=== PATIENT | female | born 1960 | race Caucasian/White ===

== ENCOUNTER → 2017-11-07 00:10 | Outpatient (CLI) | payer OTHER, SELFPAY ==
--- NOTE | 2017-11-07 10:20 | DI.REPORT_ITS ---
SYMPTOM/DIAGNOSIS: SCREENING Z12.31 BILATERAL SCREENING MAMMOGRAMS: Mammograms were interpreted according to the usual protocol including computer analysis with CAD system, tomosynthesis and C view imaging. Comparison is made with exams from 2012 through 2016. The breasts are composed of fatty density tissue. There are no suspicious masses or suspicious microcalcifications seen. There has been no significant change. IMPRESSION: Category 1-A, negative mammogram. Routine screening is recommended. SA ASSESSMENT OF FINDINGS: Negative. Category 1. Patient will receive a letter notifying them of these results. BI-RAD category A. The breasts are almost entirely fatty.
== END ==
PROVIDERS: PCP Family Medicine; Visit Provider Family Medicine
DX: Z12.31 Encounter for screening mammogram for malignant neoplasm of breast (principal)
CPT/HCPCS: 77063; 77067

== ENCOUNTER 2018-04-11 14:32 | Outpatient (CLI) | payer OTHER, SELFPAY ==
[2018-04-11 15:15] LABS: Abs Immature Grans 0.01 k/cumm (0.0-0.09); Absolute Basophil Count 0.07 k/cumm (0.0-0.2); Absolute Lymphocyte Count 1.77 k/cumm (1.2-3.4); Absolute Monocyte Count 0.65 k/cumm (0.11-0.7); Absolute Neutrophil Count 4.74 k/cumm (1.2-6.7); Basophils % 0.9; Eosinophils % 7.7; HCT 39.6 % (36.0-46.0); HGB 13.4 g/dL (12.0-15.5); Immature Grans % 0.1; Lymphocytes % 22.6; Mean Corp. HGB Concentration 33.8 g/dL (32.0-36.0); Mean Corpuscular Hemoglobin 30.7 pg (27.0-33.0); Mean Corpuscular Volume 90.8 fL (80-95); Mean Platelet Volume 10.6 fL (8.0-11.0); Monocytes % 8.3; Neutrophils % 60.4; Platelet Count 303 x1000/uL (130-400); RBC 4.36 m/cumm (4.00-5.20); RBC Distribution Width 13.4 % (11.7-14.6); White Blood Cell Count 7.84 k/cumm (4.4-10.8)
[2018-04-11 15:18] LABS: Prothrombin Time 10.2 sec (9.3-11.0)
[2018-04-11 16:51] LABS: ALT 41 U/L (12-78); AST 33 U/L (15-37); Albumin 3.8 g/dL (3.4-5.0); Alkaline Phosphatase 89 U/L (46-116); Anion Gap 8.8 mmol/L (3-11); BUN 19 mg/dL (7-18); Bilirubin, Total 0.5 mg/dL (0.2-1.0); CO2 30.2 mmol/L (21.0-32.0); CREATININE 0.72 mg/dL (0.55-1.02); Calcium 9.5 mg/dL (8.5-10.1); Chloride 101 mmol/L (98-107); Glucose 88 mg/dL (70-100); Potassium 3.4 mmol/L (3.5-5.1); Sodium 140 mmol/L (136-145); Total Protein 7.3 g/dL (6.4-8.2)
== END 2018-04-11 14:52 ==
PROVIDERS: PCP Family Medicine; Visit Provider Nurse Practitioner Family
DX: R04.0 Epistaxis (principal)
CPT/HCPCS: 36415; 80053; 85025; 85610

== ENCOUNTER 2018-08-25 08:17 | Outpatient (CLI) | payer OTHER, SELFPAY ==
[2018-08-25 09:36] LABS: Abs Immature Grans 0.01 k/cumm (0.0-0.09); Absolute Basophil Count 0.04 k/cumm (0.0-0.2); Absolute Eosinophil Count 0.55 k/cumm (0.0-0.7); Absolute Monocyte Count 0.58 k/cumm (0.11-0.7); Absolute Neutrophil Count 3.42 k/cumm (1.2-6.7); Basophils % 0.7; HCT 38.8 % (36.0-46.0); Immature Grans % 0.2; Lymphocytes % 24.6; Mean Corp. HGB Concentration 33.5 g/dL (32.0-36.0); Mean Corpuscular Hemoglobin 30.1 pg (27.0-33.0); Mean Corpuscular Volume 89.8 fL (80-95); Monocytes % 9.5; Platelet Count 280 x1000/uL (130-400); RBC 4.32 m/cumm (4.00-5.20); RBC Distribution Width 13.9 % (11.7-14.6)
[2018-08-25 10:05] LABS: ALT 38 U/L (12-78); AST 29 U/L (15-37); Albumin 3.6 g/dL (3.4-5.0); Alkaline Phosphatase 89 U/L (46-116); Anion Gap 8.2 mmol/L (3-11); BUN 15 mg/dL (7-18); Bilirubin, Total 0.4 mg/dL (0.2-1.0); CO2 30.8 mmol/L (21.0-32.0); CREATININE 0.67 mg/dL (0.55-1.02); Calcium 8.8 mg/dL (8.5-10.1); Chloride 103 mmol/L (98-107); Glucose 90 mg/dL (70-100); Potassium 3.9 mmol/L (3.5-5.1); Sodium 142 mmol/L (136-145); Total Protein 6.9 g/dL (6.4-8.2)
[2018-08-25 10:07] LABS: Cholesterol 183 mg/dL (50-200); HDL Cholesterol 57 mg/dL (40-60); LDL CHOLESTEROL 105 mg/dL (<100); Triglyceride 63 mg/dL (30-150)
== END 2018-08-25 08:37 ==
PROVIDERS: PCP Family Medicine; Visit Provider Internal Medicine Rheumatology
DX: E78.5 Hyperlipidemia, unspecified (principal); M19.90 Unspecified osteoarthritis, unspecified site; Z79.899 Other long term (current) drug therapy
CPT/HCPCS: 36415; 80053; 80061; 83721; 85025

== ENCOUNTER 2018-11-19 03:47 | Outpatient (CLI) | payer OTHER, SELFPAY ==
--- NOTE | 2018-11-19 09:50 | DI.MAMMO_ITS ---
SYMPTOM/DIAGNOSIS: SCREENING, Z12.31 BILATERAL SCREENING MAMMOGRAM: Mammograms were interpreted according to the usual protocol including computer analysis with CAD system, tomosynthesis and C view imaging. Comparison is made with exams from 2012 through 2018. The breasts are composed of fatty density tissue, breast density category A. No suspicious masses or suspicious microcalcifications are seen. There has been no significant change. IMPRESSION: Category 1, negative mammogram. Yearly screening mammography is recommended. Breast density category A. SA ASSESSMENT OF FINDINGS: Negative. Category 1. Patient will receive a letter notifying them of these results. BI-RAD category A. The breasts are almost entirely fatty.
== END 2018-11-19 04:07 ==
PROVIDERS: PCP Family Medicine; Visit Provider Family Medicine
DX: Z12.31 Encounter for screening mammogram for malignant neoplasm of breast (principal)
CPT/HCPCS: 77063; 77067

== ENCOUNTER 2019-03-26 13:39 | Outpatient (REF) | payer OTHER, SELFPAY ==
--- NOTE | 2019-03-26 13:30 | ENDOMET_PTH ---
PATIENT: Ashlie Jenkins LOC: [facility] U#:[id number] AGE/SX: 59/F ROOM: RE03/26/[address]: Moraima Rosales : 1960 BED: DIS: 03/26/2019 SPEC #: [id number] RECD: 03/26/19 17:28 STATUS: VÍCTOR RETiffanie #: [id number] KAREL: 03/26/19 13:[address]: Moraima Rosales DEPT: Surgical Specimen RECD BY: Maria D Angeles ENTERED: 03/26/19 17:29 SP TYPE: Endomet OTHR DR: Abigail Vizcarra MD Tissues: 1 - ENDOMETRIUM BX/CURRETTE Procedures: GROSS AND MICRO LEVEL 4 Comments: [id number]
== END 2019-03-26 13:59 ==
LOC: LBN 13:39
PROVIDERS: PCP Family Medicine; Visit Provider Obstetrics & Gynecology Gynecology
DX: N85.01 Benign endometrial hyperplasia (principal); N95.0 Postmenopausal bleeding
CPT/HCPCS: 88305

== ENCOUNTER 2019-11-23 01:04 | Outpatient (CLI) | payer OTHER, SELFPAY ==
--- NOTE | 2019-11-23 08:30 | DI.MAMMO_ITS ---
EXAM: MAMMO SCREENING CLINICAL HISTORY: screening,z12.39 TECHNIQUE: Mammograms were interpreted according to the usual protocol including computer analysis w [employer] CAD system, tomosynthesis and C-view imaging. COMPARISON: 2011 through 2018 FINDINGS: The breasts are composed of mainly fatty density , Breast Density category A. No suspicious masses or suspicious microcalcifications are seen. No skin thickening or abnormal axillary lymph nodes are seen. There has been no significant change from prior exams. IMPRESSION: BI-RADS Category 1, Negative mammogram Yearly screening mammography is recommended. Breast Density Category A, fatty density. A negative radiographic report should not delay biopsy if a dominant or clinically suspicious mass is present. Up to ten percent of cancers are not identified on mammography. A negative report may reinforce clinical impression. Adenosis and dense breasts may obscure an underlying neoplasm. False positive reports average 6 to 10%. Patient will receive a letter notifying them of these results.
== END 2019-11-23 01:24 ==
PROVIDERS: PCP Family Medicine; Visit Provider Family Medicine
DX: Z12.31 Encounter for screening mammogram for malignant neoplasm of breast (principal); R92.2 Inconclusive mammogram
CPT/HCPCS: 77063; 77067

== ENCOUNTER 2020-01-12 01:26 | Outpatient (CLI) | payer OTHER, SELFPAY ==
[2020-01-12 09:24] LABS: HCT 38.7 % (36.0-46.0); HGB 13.1 g/dL (11.2-15.7); MCH 30.1 pg (27.0-33.0); MCHC 33.9 % (32.0-36.0); MPV 10.4 fL (8.0-11.0); Platelet Count 293 10^3/uL (130-400); RBC 4.35 10^6/uL (3.93-5.22); RDW 13.5 % (11.7-14.6); RDW-SD 44.1 fL; WBC 6.63 10^3/uL (4.4-10.8)
[2020-01-12 10:09] LABS: ALT 74 U/L (14-59); AST 51 U/L (15-37); Albumin 3.8 g/dL (3.4-5.0); Alkaline Phosphatase 99 U/L (46-116); Anion Gap 4.2 mmol/L (3-11); BUN 14 mg/dL (7-18); Bilirubin, Total 0.5 mg/dL (0.2-1.0); CO2 34.8 mmol/L (21.0-32.0); CREATININE 0.62 mg/dL (0.55-1.02); Calcium 8.9 mg/dL (8.5-10.1); Calculated LDL 143 mg/dL (<100); Chloride 103 mmol/L (98-107); Cholesterol 229 mg/dL (<200); Glucose 112 mg/dL (74-106); HDL Cholesterol 72 mg/dL (40-60); Potassium 3.7 mmol/L (3.5-5.1); Sodium 142 mmol/L (136-145); Total Protein 7.1 g/dL (6.4-8.2); Triglyceride 70 mg/dL (<150)
== END 2020-01-12 01:46 ==
PROVIDERS: PCP Family Medicine; Visit Provider Internal Medicine Rheumatology
DX: E78.5 Hyperlipidemia, unspecified (principal); E83.42 Hypomagnesemia; M19.90 Unspecified osteoarthritis, unspecified site; Z79.899 Other long term (current) drug therapy
CPT/HCPCS: 36415; 80053; 80061; 85027; 83735

== ENCOUNTER 2020-06-15 03:50 | Outpatient (CLI) | payer OTHER, SELFPAY ==
[2020-06-15 09:27] LABS: Hemoglobin A1C 5.7 % (<5.7)
[2020-06-15 10:12] LABS: ALT 32 U/L (14-59); AST 24 U/L (15-37); Albumin 3.7 g/dL (3.4-5.0); Alkaline Phosphatase 98 U/L (46-116); Anion Gap 10.7 mmol/L (3-11); BUN 15 mg/dL (7-18); Bilirubin, Total 0.5 mg/dL (0.2-1.0); CO2 28.3 mmol/L (21.0-32.0); CREATININE 0.7 mg/dL (0.55-1.02); Calcium 8.9 mg/dL (8.5-10.1); Calculated LDL 97 mg/dL (<100); Chloride 102 mmol/L (98-107); Cholesterol 171 mg/dL (<200); Glucose 100 mg/dL (74-106); HDL Cholesterol 60 mg/dL (40-60); Potassium 3.9 mmol/L (3.5-5.1); Sodium 141 mmol/L (136-145); Total Protein 7.2 g/dL (6.4-8.2); Triglyceride 74 mg/dL (<150)
== END 2020-06-15 03:51 | disposition home or self-care (01) ==
LOC: LBO 03:51
PROVIDERS: PCP Family Medicine; Visit Provider Family Medicine
DX: E78.00 Pure hypercholesterolemia, unspecified (principal); R74.02 Elevation of levels of lactic acid dehydrogenase [LDH]; R73.9 Hyperglycemia, unspecified
CPT/HCPCS: 36415; 80053; 80061; 83036

== ENCOUNTER 2020-07-23 16:45 | Outpatient (REF) | payer OTHER, SELFPAY | END 2020-07-23 16:46 | disposition home or self-care (01) | LOC: LBN 16:45 | PROVIDERS: PCP Family Medicine; Visit Provider Nurse Practitioner Family | DX: N39.0 Urinary tract infection, site not specified (principal) | CPT/HCPCS: 87077; 87086; 87186 ==

== ENCOUNTER 2021-01-06 01:16 | Outpatient (CLI) | payer OTHER, SELFPAY ==
[2021-01-06 11:35] LABS: Abs Immature Grans 0.04 10^3/uL (0.0-0.06); Absolute Basophil Count 0.08 10^3/uL (0.0-0.2); Absolute Eosinophil Count 0.41 10^3/uL (0.0-0.7); Absolute Monocyte Count 0.83 10^3/uL (0.1-0.8); Absolute Neutrophil Count 6.15 10^3/uL (1.2-6.7); Basophils % 0.8; Eosinophils % 4.3; HCT 40.4 % (36.0-46.0); HGB 13.2 g/dL (11.2-15.7); Immature Grans % 0.4; Lymphocytes % 21.9; MCH 28.9 pg (27.0-33.0); MCHC 32.7 % (32.0-36.0); MCV 88.4 fL (80-95); MPV 10.1 fL (8.0-11.0); Monocytes % 8.6; Nucleated RBC 0 %; Platelet Count 392 10^3/uL (130-400); RBC 4.57 10^6/uL (3.93-5.22); RDW 13.9 % (11.7-14.6); RDW-SD 45.1 fL; WBC 9.61 10^3/uL (4.4-10.8)
[2021-01-06 12:51] LABS: ALT 33 U/L (14-59); AST 25 U/L (15-37); Albumin 3.9 g/dL (3.4-5.0); Alkaline Phosphatase 100 U/L (46-116); Anion Gap 5.8 mmol/L (3-11); BUN 19 mg/dL (7-18); Bilirubin, Total 0.4 mg/dL (0.2-1.0); CO2 34.2 mmol/L (21.0-32.0); CREATININE 0.8 mg/dL (0.55-1.02); Calcium 9.2 mg/dL (8.5-10.1); Chloride 102 mmol/L (98-107); Glucose 91 mg/dL (74-106); Potassium 4.1 mmol/L (3.5-5.1); Sodium 142 mmol/L (136-145); Total Protein 7.6 g/dL (6.4-8.2)
== END 2021-01-06 01:17 | disposition home or self-care (01) ==
LOC: LBO 01:16
PROVIDERS: PCP Family Medicine; Visit Provider Internal Medicine Rheumatology
DX: M15.4 Erosive (osteo)arthritis (principal); Z79.899 Other long term (current) drug therapy
CPT/HCPCS: 36415; 80053; 85025

== ENCOUNTER 2021-06-29 11:21 | Outpatient (REF) | payer OTHER, SELFPAY ==
--- NOTE | 2021-06-29 10:37 | PAPFT_PTH ---
PATIENT: Ashlie Jenkins LOC: [facility] U#:[id number] AGE/SX: 61/F ROOM: RE06/29/[address]: Moraima Rosales : 1960 BED: DIS: 06/29/2021 SPEC #: [id number] RECD: 06/29/21 12:43 STATUS: VÍCTOR REQ #: [id number] KAREL: 06/29/21 10:[address]: Moraima Rosales DEPT: [facility] Cytology RECD BY: Maria D Angeles ENTERED: 06/29/21 12:43 SP TYPE: PAPFT OTHR DR: Shadia Márquez Tissues: 1 - CX/ENDOCX FOR PAP SMEARS Procedures: PAP THIN PREP/UVM Screening HPV DNA PROBE Comments: [id number]
== END 2021-06-29 11:22 | disposition home or self-care (01) ==
LOC: LBN 11:21
PROVIDERS: PCP Family Medicine; Visit Provider Obstetrics & Gynecology Gynecology
DX: Z12.4 Encounter for screening for malignant neoplasm of cervix (principal); Z11.51 Encounter for screening for human papillomavirus (HPV)
CPT/HCPCS: 88142; 87624

== ENCOUNTER 2021-07-24 01:27 | Outpatient (CLI) | payer OTHER, SELFPAY ==
--- NOTE | 2021-07-24 17:00 | DI.MAMMO_ITS ---
Exam(s) MAMMO SCREENING EXAM: MAMMO SCREENING CLINICAL HISTORY: screening. TECHNIQUE: Bilateral full field digital CC and MLO mammographic images were obtained with 3D tomosyn thesis and utilizing computer aided detection (CAD). COMPARISON: Prior mammograms were reviewed, the most recent being November 2019.. FINDINGS: There has been no significant change in the appearance and distribution of the fibroglandular tissue. There are no new spiculated masses nor malignant appearing microcalcification groups. There is no significant architectural distortion nor skin thickening-retraction. IMPRESSION: No radiographic evidence of malignancy. BI-RADS Category 1 - Negative Breast Density - Category A - Almost entirely fatty Breast density Category C or D implies that the patient has dense breast tissue. Dense breast tissue can make it harder to find cancer on a mammogram. Dense breast tissue is also associated with an incr eased risk of breast cancer. This information about the result of the mammogram report was provided to the patient to raise their awareness. Use this report when you speak with the patient about their risks for breast cancer, which includes their family history. At that time, you may recommend additional screening tests (Ultrasoun d or MRI) as these tests may add significant information. A negative radiographic report should not delay biopsy if a dominant or clinically suspicious mass is present. Up to ten percent of cancers are not identified on mammography. A negative report may reinforce clinical impression. Adenosis and dense breasts may obscure an underlying neoplasm. False positive reports average 6 to 10%. Patient will receive a letter notifying them of these results.
== END 2021-07-24 01:47 ==
PROVIDERS: PCP Family Medicine; Visit Provider Obstetrics & Gynecology Gynecology
DX: Z12.31 Encounter for screening mammogram for malignant neoplasm of breast (principal)
CPT/HCPCS: 77063; 77067

== ENCOUNTER 2021-08-01 06:00 | Outpatient (CLI) | payer OTHER, SELFPAY ==
[2021-08-01 10:23] LABS: Abs Immature Grans 0.01 10^3/uL (0.0-0.06); Absolute Basophil Count 0.07 10^3/uL (0.0-0.2); Absolute Eosinophil Count 0.42 10^3/uL (0.0-0.7); Absolute Lymphocyte Count 1.52 10^3/uL (1.2-3.4); Absolute Monocyte Count 0.52 10^3/uL (0.1-0.8); Absolute Neutrophil Count 4.16 10^3/uL (1.2-6.7); Eosinophils % 6.3; HCT 41.8 % (36.0-46.0); HGB 13.6 g/dL (11.2-15.7); Immature Grans % 0.1; Lymphocytes % 22.7; MCH 29.2 pg (27.0-33.0); MCHC 32.5 % (32.0-36.0); MCV 89.7 fL (80-95); MPV 10.5 fL (8.0-11.0); Monocytes % 7.8; Neutrophils % 62.1; Platelet Count 337 10^3/uL (130-400); RBC 4.66 10^6/uL (3.93-5.22); RDW 14.1 % (11.7-14.6); RDW-SD 46.3 fL
[2021-08-01 10:35] LABS: Hemoglobin A1C 5.7 % (<5.7)
[2021-08-01 11:21] LABS: ALT 61 U/L (14-59); AST 36 U/L (15-37); Albumin 3.9 g/dL (3.4-5.0); Alkaline Phosphatase 94 U/L (46-116); Anion Gap 5.7 mmol/L (3-11); BUN 16 mg/dL (7-18); Bilirubin, Total 0.4 mg/dL (0.2-1.0); CO2 32.3 mmol/L (21.0-32.0); CREATININE 0.7 mg/dL (0.55-1.02); Calcium 8.9 mg/dL (8.5-10.1); Calculated LDL 131 mg/dL (<100); Chloride 104 mmol/L (98-107); Cholesterol 206 mg/dL (<200); Glucose 102 mg/dL (74-106); HDL Cholesterol 59 mg/dL (40-60); Potassium 3.9 mmol/L (3.5-5.1); Sodium 142 mmol/L (136-145); TSH 1.02 uIU/mL (0.36-3.74); Total Protein 7.4 g/dL (6.4-8.2); Triglyceride 83 mg/dL (<150); Vitamin B12 686 pg/mL (193-986)
[2021-08-01 11:31] LABS: Uric Acid 4.4 mg/dL (2.6-6.0)
[2021-08-03 05:57] LABS: Vitamin D 25 Total 37.7 ng/mL (30-100)
== END 2021-08-01 06:01 | disposition home or self-care (01) ==
LOC: LBO 06:00
PROVIDERS: PCP Family Medicine; Visit Provider Family Medicine
DX: E66.01 Morbid (severe) obesity due to excess calories (principal); Z68.41 Body mass index [BMI] 40.0-44.9, adult
CPT/HCPCS: 36415; 80053; 80061; 82306; 82607; 83036; 83525; 84443; 84550; 85025

== ENCOUNTER 2021-08-24 03:34 | Outpatient (CLI) | payer OTHER, SELFPAY ==
[2021-08-24 10:25] LABS: Iron 71 ug/dL (50-170); Total Iron Binding Capacity 342 ug/dL (250-450)
[2021-08-24 10:39] LABS: Ferritin 83 ng/mL (8-252)
[2021-08-25 09:00] LABS: Hepatitis B Surface Ag Negative (Negative)
[2021-08-25 10:23] LABS: Hepatitis C Ab w Rflx HCV PCR Negative (Negative)
== END 2021-08-24 03:35 | disposition home or self-care (01) ==
LOC: LBO 03:34
PROVIDERS: PCP Family Medicine; Visit Provider Nurse Practitioner Family
DX: R79.89 Other specified abnormal findings of blood chemistry (principal)
CPT/HCPCS: 36415; 86803; 87340; 82728; 83540; 83550

== ENCOUNTER 2022-02-20 03:40 | Outpatient (CLI) | payer OTHER, SELFPAY ==
[2022-02-20 10:37] LABS: Calcium 8.5 mg/dL (8.5-10.1); Glucose 104 mg/dL (74-106)
[2022-02-20 10:38] LABS: Anion Gap 5.3 mmol/L (3-11); BUN 14 mg/dL (7-18); CO2 32.7 mmol/L (21.0-32.0); CREATININE 0.7 mg/dL (0.55-1.02); Calculated LDL 126 mg/dL (<100); Chloride 103 mmol/L (98-107); Cholesterol 208 mg/dL (<200); Estimated GFR 98.34 (mL/min/1.73m2); HDL Cholesterol 64 mg/dL (40-60); Potassium 3.2 mmol/L (3.5-5.1); Sodium 141 mmol/L (136-145); Triglyceride 90 mg/dL (<150)
== END 2022-02-20 03:41 | disposition home or self-care (01) ==
LOC: LBO 03:40
PROVIDERS: PCP Family Medicine; Visit Provider Family Medicine
DX: I10 Essential (primary) hypertension (principal); E78.5 Hyperlipidemia, unspecified
CPT/HCPCS: 36415; 80048; 80061

== ENCOUNTER 2022-11-20 18:26 | Emergency (ER) | payer OTHER, SELFPAY ==
[2022-11-20 18:30] VITALS: BP 158/84; PULSE 86; RESP 18; TEMP 36; O2SAT 96
--- NOTE | 2022-11-20 20:36 | W.ED.GENAD ---
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) Primary Care Provider: Shadia Márquez ED Provider: Osmani Tovar Home Meds and New Rx's Prescriptions: New valacyclovir 1 gram tablet 1,000 mg PO TID 7 Days Qty: 21 0RF prednisone 20 mg tablet 60 mg PO DAILY 7 Days Qty: 21 0RF No Action Metamucil 3.4 gram/5.4 gram powder 1 tsp PO DAILY duloxetine 60 mg capsule,delayed release(DR/EC) 60 mg PO DAILY Qty: 90 4RF Rx Instructions: take one capsule daily/ naproxen [Naprosyn] 500 mg tablet 500 mg PO DAILY Qty: 90 3RF potassium chloride 10 mEq tablet extended release 10 meq PO DAILY Qty: 90 3RF hydrochlorothiazide 25 mg tablet 25 mg PO DAILY Qty: 90 4RF famotidine 20 mg tablet 20 mg PO BID PRN (Reason: gerd) Qty: 60 2RF losartan 50 mg tablet 50 mg PO DAILY Qty: 30 3RF acetaminophen [Tylenol Extra Strength] 500 MG tablet 1,000 mg PO PRN (DME) Aerochamber Plus Flow-Vu 1 EACH spacer 1 ea Miscellaneous PRN Qty: 1 cholecalciferol (vitamin D3) 25 mcg (1,000 unit) tablet 25 mcg PO DAILY Qty: 60 Discharge Instructions Instructions: Chacon Palsy (ED) Additional Instructions: Please take medications as prescribed. Please follow-up with your primary care physician. Return to the emergency department for any worsening symptom Medical Decision Making 62-year-old female presents with 1 day of right-sided headache occipital in nature increased lacrimation of right eye, facial paralysis involving brow eye and nasolabial fold, found to have vesicular lesions on right TM, history and physical consistent with Rafael España syndrome. We will start valacyclovir and prednisone. Low suspicion for CVA intracranial hemorrhage meningitis encephalitis carotid artery pathology or jugular venous thrombosis given history and physical. Home care instructions return precautions given HPI General Date/Time Provider Initiated Documentation: 11/20/22 20:23. HPI Narrative: 62-year-old female presents with right-sided neck discomfort headache and facial paralysis over the last day, also has some ear pain and has noted increased lacrimation of right eye Related Data Home Medications Medication Instructions Recorded Confirmed acetaminophen 500 mg tablet 1,000 mg PO PRN 05/06/14 11/20/22 (Tylenol Extra Strength) inhalational spacing device ##1 08/02/14 11/20/22 (Aerochamber Plus Flow-Vu) psyllium husk 3.4 gram/5.4 gram 1 tsp PO DAILY 01/30/18 11/20/22 oral powder (Metamucil) duloxetine 60 mg capsule,delayed 60 mg PO DAILY #90 caps 02/26/22 11/20/22 release hydrochlorothiazide 25 mg tablet 25 mg PO DAILY #90 tabs 02/26/22 11/20/22 naproxen 500 mg tablet (Naprosyn) 500 mg PO DAILY #90 tab-caps 02/26/22 11/20/22 potassium chloride 10 mEq 10 meq PO DAILY #90 tabs 02/26/22 11/20/22 tablet,extended release cholecalciferol (vitamin D3) 25 25 mcg PO DAILY #60 tabs 06/27/22 11/20/22 mcg (1,000 unit) tablet famotidine 20 mg tablet 20 mg PO BID PRN gerd #60 tabs 09/04/22 11/20/22 losartan 50 mg tablet 50 mg PO DAILY #30 tabs 09/04/22 11/20/22 prednisone 20 mg tablet 60 mg PO DAILY 7 days #21 tabs 11/20/22 valacyclovir 1 gram tablet 1,000 mg PO TID 7 days #21 tabs 11/20/22 Previous Rx's Medication Instructions Recorded duloxetine 60 mg capsule,delayed 60 mg PO DAILY #90 caps 02/26/22 release hydrochlorothiazide 25 mg tablet 25 mg PO DAILY #90 tabs 02/26/22 naproxen 500 mg tablet (Naprosyn) 500 mg PO DAILY #90 tab-caps 02/26/22 potassium chloride 10 mEq 10 meq PO DAILY #90 tabs 02/26/22 tablet,extended release famotidine 20 mg tablet 20 mg PO BID PRN gerd #60 tabs 09/04/22 losartan 50 mg tablet 50 mg PO DAILY #30 tabs 09/04/22 prednisone 20 mg tablet 60 mg PO DAILY 7 days #21 tabs 11/20/22 valacyclovir 1 gram tablet 1,000 mg PO TID 7 days #21 tabs 11/20/22 Allergies Allergy/AdvReac Type Severity Reaction Status Date / Time adhesive AdvReac Intermediate Skin Rash Verified 11/20/22 18:35 lisinopril AdvReac Mild cough Verified 11/20/22 18:35 glucosamine AdvReac HEADACHE Verified 11/20/22 18:35 General Stated Complaint: GenMedical BANDAR: 3 Review of Systems Narrative: Review of Systems Constitutional: negative Eyes: Lacrimation ENT: Ear pain, facial paralysis Cardiovascular: negative Respiratory: negative Gastrointestinal: negative : negative Musculoskeletal: negative Skin: negative Neurologic: Facial paralysis, headache Psych: negative PFSH All Active Problems (Updated 11/20/22 @ 20:40 by Osmani Tovar MD) Allergic rhinitis (Chronic 12/24/13) Essential hypertension (Chronic 05/07/13) Hyperlipidemia (Chronic 01/03/12) Inflammatory osteoarthritis (Chronic) Depression, major, recurrent, in partial remission (Chronic) Class 2 obesity due to excess calories with body mass index (BMI) of 39.0 to 39.9 in adult (Chronic) Gastro-esophageal reflux (Chronic) 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 Hysteroscopy. B9 findings. Rx with daily Norethindrone. Stopped 10/30/17. 02/2019 resumption of light daily bleeding. 03/2019-EMBx: Normal. Bleeding resolved w/o treatment. Osteoarthritis Quadriceps tendonitis (11/28/16) Surgical History Cervical Procedure LEEP Cholecystectomy (02/04/11) open Dilation and curettage (05/06/14) [facility] Hysteroscopy (05/06/14) [facility] Replacement of total knee joint bilateral wrist surgery Family History Mother , 74 Depression Father , 74 Hyperlipidemia Sister Depression Diabetes Sister Depression Brother Asthma Son Asthma Daughter Asthma Cancer Depression Hypertension Social History (Updated 02/26/22 @ 14:24 by Shadia Márquez MD) Smoking/Tobacco Use Status: Never Second Hand Exposure: Yes Smoking risk assessment performed?: Yes Alcohol Intake: current Alcohol Intake frequency: a few times a month Alcohol type: hard liquor Drug use: Never Substance use type: does not use Caregiver/Support person: No Household members: spouse and other Details: Taylor Has been having health issues. Housing: house Communication Needs: Corrective Lenses Do you need help understanding health information?: Rarely current occupation: works in kitchen AT [employer] Pets and animals: Yes Pets and animals: cat(s) Sexually active: Yes Do you think of yourself as: straight/heterosexual Current gender identity: female What is your relationship status?: How often do you talk on the phone with friends or family?: three or more times per week How often do you get together with friends or relatives?: once per week How often do you attend samaritan or congregation services?: decline to answer Do you belong to any clubs or organized social groups?: no Panel score (0-1 are the most socially isolated patients): 2 What type of physical activity do you participate in: walking Duration: < 15 minutes/day Frequency: 1-2 times per week Ml/Yazidi: Confucianism Special ml needs: No Seatbelt use: always Helmet use: No Drive intox or ride 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 Female Reproductive History Menstrual Menopause type: natural History History 3 Para 2 Hx # Term Pregnancies Multiple births Hx # Pregnancies Ectopic pregnancies AB induced Hx Number of Living Children 2 AB spontaneous Exam Narrative Exam Narrative: Physical Examination General: alert, awake, cooperative, resting comfortably, no acute distress HEENT: normocephalic, atraumatic; PERRL, EOM intact, conjunctiva normal increased lacrimation of right eye; no nasal discharge; moist mucous membranes, oral and pharyngeal mucosa normal, tolerating secretions; vesicular lesions on right TM Neck: supple, trachea midline; full ROM Chest: normal to inspection Respiratory: normal respiratory effort, speaking in full sentences, clear to auscultation, no wheezing, rales or rhonchi Cardiac: regular rate, regular rhythm, S1S2 intact, no murmurs rubs or gallops GI: abdomen soft, non-tender, non-distended; no palpable mass or hepatosplenomegaly Skin: no lesions, rashes or trauma appreciated Neuro: Alert and oriented x3, partial paralysis of facial muscles innervated by cranial nerve VII involving forehead brow orbicularis and labial fold, patient is able to blink and close eye completely, remaining cranial nerves intact, normal speech, 5 out of 5 strength upper and lower extremities, ambulatory without ataxia Psych: Appropriate mood and affect Course Vital Signs Vital signs: Vital Signs Temperature 36.0 C L 11/20/22 18:30 Pulse 86 11/20/22 18:30 Respiratory Rate 18 11/20/22 18:30 Blood Pressure 158/84 H 11/20/22 18:30 Pulse Oximetry 96 11/20/22 18:30 Temperature 36.0 C L 11/20/22 18:30 Temperature Source Temporal Artery Scan 11/20/22 18:30 Pulse 86 11/20/22 18:30 Respiratory Rate 18 11/20/22 18:30 Respiratory Effort Normal, Non-Labored 11/20/22 18:36 Blood Pressure 158/84 H 11/20/22 18:30 Blood Pressure Position Sitting 11/20/22 18:30 Pulse Oximetry 96 11/20/22 18:30 Oxygen Delivery Method Room Air 11/20/22 18:30 Oxygen Flow Rate 0 11/20/22 18:30 PAWSS Have you Been Recently Intoxicated or Drunk Within the Last 30 days?: No Have you Ever Experienced Previous Episodes of Alcohol Withdrawal?: No Have you ever Experienced Withdrawal Seizures?: No Have you ever Experienced Delirium Tremens(DT)s?: No Have you ever undergone Alcohol Rehabilitation Treatment (i.e, inpt ot outpatient treatment programs)?: No Have you ever Experienced Blackouts?: No Have you ever Combined Alcohol with other Downers within the last 90 days?: No Have you ever Combined Alcohol with any other Substance of Abuse during the last 90 days?: No Positive Blood Alcohol level on Presentation? [PCS.BAL]: No Evidence of Increased Autonomic Activity (i.e. HR>120, tremor, sweating, agitation, nausea)?: No Result: 0
[2022-11-20] MEDS: valACYclovir 500 MG TAB (20:50)
[2022-11-20] MEDS: predniSONE 20 MG TAB 60 MG PO (20:50)
[2022-11-20 20:51] VITALS: RESP 18
== END 2022-11-20 21:08 | disposition home or self-care (01) ==
PROVIDERS: Emergency Provider Emergency Medicine; PCP Family Medicine
DX: G51.0 Bell's palsy (principal); B02.21 Postherpetic geniculate ganglionitis
CPT/HCPCS: 87798; 99283; 86618; 99284; J7512

== ENCOUNTER 2023-03-13 12:43 | Outpatient (CLI) | payer OTHER, SELFPAY ==
[2023-03-13 11:29] LABS: Anion Gap 8.8 mmol/L (3-11); BUN 14 mg/dL (7-18); CO2 31.2 mmol/L (21.0-32.0); CREATININE 0.8 mg/dL (0.55-1.02); Calcium 8.9 mg/dL (8.5-10.1); Calculated LDL 153 mg/dL (<100); Chloride 103 mmol/L (98-107); Cholesterol 230 mg/dL (<200); Estimated GFR 83.26 (mL/min/1.73m2); Glucose 113 mg/dL (74-106); HDL Cholesterol 52 mg/dL (40-60); Potassium 3.4 mmol/L (3.5-5.1); Sodium 143 mmol/L (136-145); Triglyceride 125 mg/dL (<150)
== END 2023-03-13 12:44 | disposition home or self-care (01) ==
LOC: LBO 12:44
PROVIDERS: PCP Family Medicine; Visit Provider Family Medicine
DX: E78.5 Hyperlipidemia, unspecified (principal); Z13.6 Encounter for screening for cardiovascular disorders; I10 Essential (primary) hypertension
CPT/HCPCS: 36415; 80048; 80061

== ENCOUNTER → 2023-08-16 00:01 | Outpatient (CLI) | payer OTHER, SELFPAY ==
--- NOTE | 2023-08-16 08:15 | DI.MAMMO_ITS ---
Exam(s) MAMMO SCREENING EXAM: MAMMO SCREENING CLINICAL HISTORY: screening,z12.39 TECHNIQUE: Mammograms were interpreted according to the usual protocol including computer analysis w [employer] CAD system, tomosynthesis and C-view imaging. COMPARISON: 2015 through 2021 FINDINGS: The breasts are composed of mainly fatty density , Breast Density category A. No suspicious masses or suspicious microcalcifications are seen. No skin thickening or abnormal axillary lymph nodes are seen. There has been no significant change from prior exams. IMPRESSION: BI-RADS Category 1, Negative mammogram Yearly screening mammography is recommended. Breast Density - Category A, fatty density. A negative radiographic report should not delay biopsy if a dominant or clinically suspicious mass is present. Up to ten percent of cancers are not identified on mammography. A negative report may reinforce clinical impression. Adenosis and dense breasts may obscure an underlying neoplasm. False positive reports average 6 to 10%. Patient will receive a letter notifying them of these results.
== END ==
PROVIDERS: PCP Family Medicine; Visit Provider Family Medicine
DX: Z12.31 Encounter for screening mammogram for malignant neoplasm of breast (principal)
CPT/HCPCS: 77063; 77067

== ENCOUNTER 2024-05-05 03:11 | Outpatient (CLI) | payer OTHER, SELFPAY ==
[2024-05-05 12:51] LABS: BUN 16 mg/dL (7-18); CREATININE 0.8 mg/dL (0.55-1.02); Calcium 9.4 mg/dL (8.5-10.1); Calculated LDL 151 mg/dL (<100); Chloride 104 mmol/L (98-107); Cholesterol 228 mg/dL (<200); Estimated GFR 82.74 (mL/min/1.73m2); Glucose 97 mg/dL (74-106); HDL Cholesterol 60 mg/dL (40-60); Potassium 4.1 mmol/L (3.5-5.1); Sodium 141 mmol/L (136-145); Triglyceride 85 mg/dL (<150)
[2024-05-05 13:17] LABS: Hemoglobin A1C 5.1 % (<5.7)
== END 2024-05-05 03:12 | disposition home or self-care (01) ==
PROVIDERS: PCP Family Medicine; Visit Provider Family Medicine
DX: R73.01 Impaired fasting glucose (principal); E66.2 Morbid (severe) obesity with alveolar hypoventilation; Z68.41 Body mass index [BMI] 40.0-44.9, adult; Z13.1 Encounter for screening for diabetes mellitus; Z13.6 Encounter for screening for cardiovascular disorders
CPT/HCPCS: 36415; 80048; 80061; 83036

== ENCOUNTER 2024-07-21 10:09 | Day surgery (SDC) | payer OTHER, SELFPAY ==
--- NOTE | 2024-07-21 10:14 | W.COLOREPORT ---
Date of service: 07/21/24 Time of Service: 10:14 Colonoscopy Report Procedure Description: PROCEDURES PERFORMED: 1. Colonoscopy PREOPERATIVE DIAGNOSIS: Surveillance colonoscopy POSTOPERATIVE DIAGNOSIS: Grade 2 internal hemorrhoids, external hemorrhoids SURGEON: Leandro Diaz MD INDICATION FOR PROCEDURE: the patient is a 64-year-old woman with no family history of colon cancer and no significant findings on prior colonoscopy. No symptoms. Due for surveillance examination. FINDINGS: No inflammation anywhere. No polyps. No obvious diverticular disease. She has significant grade 2 internal hemorrhoids at all 3 columns. She has visible external hemorrhoids. She has 3 or 4 benign?appearing skin tags. SURVEILLANCE interval/FOLLOW-UP: 10 years SPECIMENS: None EBL: Minimal COMPLICATIONS: None QUALITY of prep: Excellent Procedure in detail: The patient gave written consent and was in agreement with the indications, the potential risks as well as the benefits of the procedure. They were taken to the endoscopy suite and laid in the left lateral decubitus position. A timeout was performed and anesthesia was administered which was tolerated well. I started the procedure. Digital rectal and visual examination was performed and grossly within normal limits. A well-lubricated flexible colonoscope was then introduced and passed without any notable difficulty all the way to the cecum identified by the ileocecal valve and the appendiceal orifice. The scope was then slowly withdrawn with the above-noted findings. The patient tolerated the procedure well and was taken to the PACU in hemodynamically stable condition.
[2024-07-21 10:15] VITALS: BP 144/87; PULSE 96; RESP 22; TEMP 36.4; O2SAT 95
--- NOTE | 2024-07-21 10:15 | PDOC.DSDIS_ITS ---
Date of service: 07/21/24 Discharge Plan Disposition Patient Disposition: Home Condition: Good Discharge Details Attending Provider: Kane Diaz Primary Care Provider: Shadia Márquez Home Meds and New Rx's Prescriptions: No Action Metamucil 3.4 gram/5.4 gram powder 1 tsp PO DAILY bupropion HCl 150 mg tablet sustained-release 12 hr 150 mg PO DAILY Qty: 90 3RF duloxetine 60 mg capsule,delayed release(DR/EC) 60 mg PO DAILY Qty: 90 4RF Rx Instructions: take one capsule daily/ hydrochlorothiazide 25 mg tablet 25 mg PO DAILY Qty: 90 4RF potassium chloride 10 mEq tablet extended release 10 meq PO DAILY Qty: 90 3RF acetaminophen [Tylenol Extra Strength] 500 MG tablet 1,000 mg PO PRN cholecalciferol (vitamin D3) 25 mcg (1,000 unit) tablet 25 mcg PO DAILY Qty: 60 clobetasol 0.05 % foam 1 applic topical QHS Qty: 100 1RF naproxen [Naprosyn] 500 mg tablet 500 mg PO DAILY Qty: 90 3RF losartan 50 mg tablet 50 mg PO DAILY Qty: 90 3RF famotidine 20 mg tablet 20 mg PO BID Discharge Instructions Additional Instructions: FINDINGS: There were no polyps found. Definitely no cancer. And no inf lammation anywhere. Overall your colon and your rectum appear very healthy. You do have significant hemorrhoid disease which is extremely common, benign, and nothing needs to be done about it if it does not bother you. Hemorrhoid symptoms are often mild bleeding, itching, sometimes pain, etc. You can discuss this with your PCP if necessary. Repeat a colonoscopy in 10 years. Stand Alone Forms: Anesthesia Discharge Inst., Colonoscopy Post Instructions, Arthur Brown (DSU) Activity:: Activity as Tolerated Diet:: As Tolerated Discharge Orders Discharge Orders: Discharge Order (Routine); Ordered 07/21/24 Ordered By: Kane Diaz
[2024-07-21] MEDS: Lactated Ringers 1,000 ML 80 ML IV (10:40)
--- NOTE | 2024-07-21 10:44 | W.ANESPRE ---
General Info Date of Service Date Performed: 07/21/24 Height: 5 ft 1 in Weight: 89.1 kg Body Mass Index (BMI): 37.0 Surgical Procedure: Operation Date: 07/21/24 10:35 Proposed Procedure Side Surgeon p Osorio Diaz MD Meds Allergies and Home Medications Allergies Allergy/AdvReac Type Severity Reaction Status Date / Time adhesive AdvReac Intermediate Skin Rash Verified 07/21/24 10:27 lisinopril AdvReac Mild cough Verified 07/21/24 10:27 glucosamine AdvReac HEADACHE Verified 07/21/24 10:27 Home Medication ?Medication ?Instructions ?Recorded acetaminophen 500 mg tablet 1,000 mg PO PRN 05/06/14 (Tylenol Extra Strength) psyllium husk 3.4 gram/5.4 gram 1 tsp PO DAILY 01/30/18 oral powder (Metamucil) cholecalciferol (vitamin D3) 25 25 mcg PO DAILY #60 tabs 06/27/22 mcg (1,000 unit) tablet clobetasol 0.05 % topical foam 1 applic topical QHS #100 grams 02/25/24 bupropion HCl 150 mg tablet,12 hr 150 mg PO DAILY #90 tabs 05/08/24 sustained-release duloxetine 60 mg capsule,delayed 60 mg PO DAILY #90 caps 05/08/24 release hydrochlorothiazide 25 mg tablet 25 mg PO DAILY #90 tabs 05/08/24 potassium chloride 10 mEq 10 meq PO DAILY #90 tabs 05/08/24 tablet,extended release naproxen 500 mg tablet (Naprosyn) 500 mg PO DAILY #90 tab-caps 05/19/24 losartan 50 mg tablet 50 mg PO DAILY #90 tabs 07/09/24 famotidine 20 mg tablet 20 mg PO BID gerd 07/21/24 Current Visit Medications: Current Medications Generic Name Dose Route Start Last Admin Trade Name Freq PRN Reason Stop Dose Admin Ringer's Solution 1,000 mls @ 80 mls/hr 07/21/24 06:00 IV 07/21/24 23:59 [facility] Ringer's Solution 1,000 mls @ 80 mls/hr 07/21/24 06:00 IV 07/21/24 23:59 [facility] IV Miscellaneous Supplies 1 each 07/21/24 06:00 Iv Access IV 07/21/24 23:59 DIRECTED JIMI IV Miscellaneous Supplies 1 each 07/21/24 06:00 Iv Access IV 07/21/24 23:59 DIRECTED JIMI Sodium Chloride 0 ml 07/21/24 06:00 Normal Saline Flush 10 Ml Syr IV 07/21/24 23:59 PRN PRN Sodium Chloride 0 ml 07/21/24 06:00 Normal Saline 10 Ml Vial IJ 07/21/24 23:59 DIRECTED PRN Sodium Chloride 0 ml 07/21/24 06:00 Normal Saline Flush 10 Ml Syr IV 07/21/24 23:59 PRN PRN Sodium Chloride 0 ml 07/21/24 06:00 Normal Saline 10 Ml Vial IJ 07/21/24 23:59 DIRECTED PRN Sterile Water 0 ml 07/21/24 06:00 Water,Injection,Sterile 10 Ml Vial IJ 07/21/24 23:59 DIRECTED PRN Sterile Water 0 ml 07/21/24 06:00 Water,Injection,Sterile 10 Ml Vial IJ 07/21/24 23:59 DIRECTED PRN PFSH Active Problems Active Problems: Problem Status Onset Code Class 2 obesity with body mass index (BMI) of 38.0 to 38.9 in adult Acute E66.812, Z68.38 Chronic constipation Acute K59.09 BPPV (benign paroxysmal positional vertigo) Acute H81.10 Allergic rhinitis Chronic 12/24/13 J30.9 Essential hypertension Chronic 05/07/13 I10 Hyperlipidemia Chronic 01/03/12 E78.5 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 Hysteroscopy. B9 findings. Rx with daily Norethindrone. Stopped 10/30/17. 02/2019 resumption of light daily bleeding. 03/2019-EMBx: Normal. Bleeding resolved w/o treatment. Osteoarthritis Quadriceps tendonitis (11/28/16) Surgical History Surgical History Cervical Procedure LEEP Cholecystectomy (02/04/11) open Dilation and curettage (05/06/14) [facility] Hysteroscopy (05/06/14) [facility] Replacement of total knee joint bilateral wrist surgery Tobacco Smoking/Tobacco Use Status: Never Passive smoking exposure: Yes Second hand exposure: Yes Alcohol Alcohol Intake: current Alcohol intake frequency: a few times a month Alcohol type: hard liquor Substance Use Substance use: Never Substance use type: does not use Prental History History 3 Para 2 Hx # Term Pregnancies Multiple births Hx # Pregnancies Ectopic pregnancies AB induced Hx Number of Living Children 2 AB spontaneous Vital Signs and Lab Results Vital Signs Most Recent Vital Signs in EMR: Most Recent Vital Signs Temp Pulse Resp BP Pulse Ox 36.4 C L 96 H 22 144/87 H 95 07/21/24 10:15 07/21/24 10:15 07/21/24 10:15 07/21/24 10:15 07/21/24 10:15 Lab Results Blood Type / Crossmatch: No Data to Display Complete Blood Count: No Data to Display Complete Metabolic Panel: No Data to Display Liver Function Panel: No Data to Display Coagulation Panel: No Data to Display Cardiac Panel: No Data to Display Arterial Blood Gas: No Data to Display Venous Blood Gas: No Data to Display Pancreas Panel: No Data to Display Thyroid Panel: No Data to Display Infectious Disease: No Data to Display Blood Cultures: No Data to Display Toxicology Panel: No Data to Display Anesthesia Assessment and Plan Anesthesia History Personal History: No History of Anesthesia Complications Family History: No Family History of Anesthesia Complications Exercise Tolerance Exercise Tolerance: Metabolic Equivalents>4 Pertinent Negatives Pertinent Negatives: No Symptoms of GERD Cardiac & Pulmonary Exam Cardiac Exam: Normal S1/S2 Heart Sounds Pulmonary Exam: Clear Bilateral Breath Sounds Implantable Cardiac Device Does patient have a Pacemaker or an ICD?: No Airway Exam Known Difficult Airway: No Mallampati Class: 2 Mouth Opening: Normal (> 3cm) Thyromental Distance: Less than 3 cm Neck Range of Motion: Full ROM Neck Circumference: Normal Teeth Condition: Normal Dentition ASA Classification ASA Score: ASA 2 Emergency Case?: No NPO Status NPO Status: NPO Clears >2 hours, Solids >8 hours Anesthesia Plan Resuscitation Status: Full Code Anesthesia Technique: General Anesthesia Airway Planned: Natural Airway Monitors Used: Standard Monitors
[2024-07-21 10:45] VITALS: BMI 37.0
[2024-07-21 11:30] VITALS: BP 109/58; PULSE 87; RESP 16; TEMP 36; O2SAT 94
--- NOTE | 2024-07-21 11:34 | W.ANESPOSTOP ---
Postoperative Evaluation Date, Time and Location Date Performed: 07/21/24 Time Performed: 11:35 Patient Location: Day Surgery Unit Vital Signs Most Recent Imported Vital Signs: Most Recent Vital Signs Temp Pulse Resp BP Pulse Ox 36 C L 87 16 109/58 L 94 07/21/24 11:30 07/21/24 11:30 07/21/24 11:30 07/21/24 11:30 07/21/24 11:30 Pain Score Most Recent Pain Score: Most Recent Pain Score Pain Level 0 07/21/24 11:30 Assessment Mental Status: Awake (Alert & Oriented to Patient Baseline) Airway and Respiratory Function: Patent airway with normal (patient baseline) respiratory exam Cardiovascular Function: Hemodynamically Stable Hydration Status: Adequately Hydrated Nausea & Vomiting: No Nausea or Vomiting Pain: Pt. Denies Any Pain Peripheral Nerve Block: Patient did not receive a nerve block
[2024-07-21 11:50] VITALS: BP 121/62; PULSE 86; RESP 16; TEMP 36.4; O2SAT 96
== END 2024-07-21 12:00 | disposition home or self-care (01) ==
LOC: SUR 10:10
PROVIDERS: PCP Family Medicine; Visit Provider Student in an Organized Health Care Education/Training Program
PROC: 0DJD8ZZ Inspection of Lower Intestinal Tract, Via Natural or Artificial Opening Endoscopic (ICD-10-PCS; CPT 45378; principal; 2024-07-21 10:30)
DX: Z12.11 Encounter for screening for malignant neoplasm of colon (principal); I10 Essential (primary) hypertension; K64.1 Second degree hemorrhoids
CPT/HCPCS: 45378; J2704

== ENCOUNTER 2024-08-19 02:08 | Outpatient (CLI) | payer OTHER, SELFPAY ==
--- NOTE | 2024-08-19 06:45 | DI.MAMMO_ITS ---
Exam(s) MAMMO SCREENING EXAM: MAMMO SCREENING CLINICAL HISTORY: screening,z12.39 TECHNIQUE: Bilateral full field digital CC and MLO mammographic images were obtained with 3D tomosyn thesis and utilizing computer aided detection (CAD). COMPARISON: Available for comparison. FINDINGS: Masses/Architectural Distortion: No suspicious masses or areas of architectural distortion are presen t. Microcalcifications: No suspicious pleomorphic-type are seen. Skin Thickening/Nipple Retraction: None. IMPRESSION: 1. No significant interval change with no specific features of malignancy noted. 2. Unless there is more urgent need, screening mammography is recommended, as per [place] [employer] guidelines. BI-RADS Category 1 - Negative Breast Density - Category A - The breast are almost entirely fatty. Breast density Category C or D implies that the patient has dense breast tissue. Dense breast tissue can make it harder to find cancer on a mammogram. Dense breast tissue is also associated with an incr eased risk of breast cancer. This information about the result of the mammogram report was provided to the patient to raise their awareness. Use this report when you speak with the patient about their risks for breast cancer, which includes their family history. At that time, you may recommend additional screening tests (Ultrasoun d or MRI) as these tests may add significant information. A negative radiographic report should not delay biopsy if a dominant or clinically suspicious mass is present. Up to ten percent of cancers are not identified on mammography. A negative report may reinforce clinical impression. Adenosis and dense breasts may obscure an underlying neoplasm. False positive reports average 6 to 10%. Patient will receive a letter notifying them of these results.
== END 2024-08-19 02:28 ==
LOC: DI 02:09
PROVIDERS: PCP Family Medicine; Visit Provider Family Medicine
DX: Z12.31 Encounter for screening mammogram for malignant neoplasm of breast (principal); R92.313 Mammographic fatty tissue density, bilateral breasts
CPT/HCPCS: 77063; 77067